=== PATIENT | male | born 1945 | race Caucasian/White ===

== ENCOUNTER 2021-01-13 07:14 | Outpatient (CLI) | payer MEDICARE ==
[2021-01-13] MEDS ORDERED: ADENOSINE 60 MG/20 ML VIAL ONE (08:39)
== END 2021-01-13 07:15 | disposition home or self-care (01) ==
LOC: NM 07:14
PROVIDERS: ATTEND Internal Medicine
DX: R07.9 Chest pain, unspecified (principal)
CPT/HCPCS: 78452; 93017; A9500; J0153

== ENCOUNTER 2021-09-17 09:46 | Observation (INO) | payer MEDICARE ==
[2021-09-17 10:10] LABS: #Eosinphils 0.1 thou/uL (0.0-0.7); #Lymphocytes 1.9 thou/uL (1.20-3.40); #Monocytes 0.7 thou/uL (0.11-0.59); #Neutrophils 8.7 thou/uL (1.40-6.50); %Basophils 0.4 % (0.0-1.0); %Eosinophils 0.8 % (0.0-10.0); %Lymphocytes 16.3 % (21.0-51.0); %Monocytes 6.1 % (0.0-10.0); %Neutrophils 76.4 % (42.0-75.0); Hemoglobin 14.4 g/dL (14.0-18.0); Mean Corpuscular HGB CONC 32.9 g/dL (32.0-36.0); Mean Corpuscular Hemoglobin 30.8 pg (27.0-31.0); Mean Corpuscular Volume 93.6 fL (78.0-98.0); Mean Platelet Volume 7.2 fL (7.4-10.4); Platelet Count 171 thou/uL (130-400); RBC Distribution Width 12.7 % (11.5-14.5); Red Blood Cell (RBC) Count 4.69 mill/uL (4.70-6.10); White Blood Cell (WBC) Count 11.4 thou/uL (4.8-10.8)
[2021-09-17] MEDS ORDERED: Lidocaine Viscous Sol 2% 15 ml UD Cup ONE (10:44)
[2021-09-17] MEDS ORDERED: Mag-Al 1200 mg/1200 mg/30 ML UDCUP ONE (10:44)
[2021-09-17] MEDS ORDERED: Aspirin Chewable 81 MG TAB ONE (10:44)
[2021-09-17] MEDS ORDERED: Pantoprazole 40 MG VIAL ONE (10:45)
[2021-09-17 11:03] LABS: ALT (SGPT) 38 U/L (8-55); AST (SGOT) 25 U/L (5-34); Albumin 4.3 g/dL (3.4-4.8); Alkaline Phosphatase 137 U/L (40-110); Anion Gap 15 mmol/L (10-20); BUN (Urea Nitrogen) 24 mg/dL (8.4-25.7); Bilirubin, Total 0.5 mg/dL (0.2-1.2); Calc. Creatinine Clearance 0 mL/min (70-130); Calcium 9.6 mg/dL (7.8-10.44); Carbon Dioxide 22 mmol/L (23-31); Chloride 107 mmol/L (98-107); Globulin 2.9 g/dL (2.4-3.5); Glucose 127 mg/dL (83-110); Lipase 55 U/L (8-78); Potassium 4.2 mmol/L (3.5-5.1); Protein, Total 7.2 g/dL (5.8-8.1); Sodium 140 mmol/L (136-145)
[2021-09-17] MEDS ORDERED: Nitroglycerin 0.4 MG TAB (25 Tab Bottle) SL PRN (12:31)
[2021-09-17 13:43] LABS: Troponin I 0.019 ng/mL (< 0.028)
[2021-09-17] MEDS ORDERED: Mag-Al 1200 mg/1200 mg/30 ML UDCUP PO PRN (13:43)
[2021-09-17] MEDS ORDERED: Calcium Carbonate 500 MG ChewTAB PO PRN (13:43)
[2021-09-17 14:05] VITALS: BMI 33.5
[2021-09-17] MEDS: Pyridostigmine Bromide IR 60 MG TAB PO SCH ×2 (16:06→20:27)
[2021-09-17 19:28] LABS: Troponin I 0.011 ng/mL (< 0.028)
[2021-09-17] MEDS: Mycophenolate 250 MG CAP PO SCH (20:27)
[2021-09-17] MEDS ORDERED: Gabapentin 300 MG CAP PO SCH (21:00)
[2021-09-17] MEDS ORDERED: Atorvastatin Calcium 40 MG TAB PO SCH (21:00)
[2021-09-18 05:24] LABS: Cardiac Risk 3.5 (Less than 4.5)
[2021-09-18] MEDS ORDERED: Levothyroxine Sodium 88 MCG TAB PO SCH (06:00)
[2021-09-18] MEDS ORDERED: Valsartan 80 MG TAB PO SCH (09:00)
[2021-09-18] MEDS ORDERED: Hydrochlorothiazide 25 MG TAB PO SCH (09:00)
[2021-09-18] MEDS ORDERED: Aspirin Chewable 81 MG TAB PO SCH (09:00)
[2021-09-18] MEDS: Mycophenolate 250 MG CAP PO SCH (09:11)
[2021-09-18] MEDS: Pyridostigmine Bromide IR 60 MG TAB PO SCH ×2 (09:12→16:15)
[2021-09-18 13:20] LABS: Troponin I Less than 0.010 ng/mL (< 0.028)
[2021-09-18 13:43] LABS: Anion Gap 13 mmol/L (10-20); BUN (Urea Nitrogen) 21 mg/dL (8.4-25.7); Calc. Creatinine Clearance 68 mL/min (70-130); Calcium 9.1 mg/dL (7.8-10.44); Carbon Dioxide 26 mmol/L (23-31); Chloride 106 mmol/L (98-107); Glucose 84 mg/dL (83-110); Potassium 3.6 mmol/L (3.5-5.1); Sodium 141 mmol/L (136-145)
[2021-09-18 15:46] VITALS: BP 123/70; TEMP 98.3
== END 2021-09-18 20:45 | disposition home or self-care (01) ==
LOC: ERS 09:46 → 2SW 12:24
PROVIDERS: ADMIT Internal Medicine; ATTEND Internal Medicine
DX: R07.2 Precordial pain (principal); I12.9 Hypertensive chronic kidney disease with stage 1 through stage 4 chronic kidney disease, or unspecified chronic kidney disease; N18.30 Chronic kidney disease, stage 3 unspecified; E78.5 Hyperlipidemia, unspecified; E03.9 Hypothyroidism, unspecified; G70.00 Myasthenia gravis without (acute) exacerbation; M17.11 Unilateral primary osteoarthritis, right knee; I45.2 Bifascicular block; I35.8 Other nonrheumatic aortic valve disorders; E66.9 Obesity, unspecified; Z68.33 Body mass index [BMI] 33.0-33.9, adult; Z85.46 Personal history of malignant neoplasm of prostate; Z79.52 Long term (current) use of systemic steroids; Z79.890 Hormone replacement therapy; Z79.899 Other long term (current) drug therapy; Z20.822 Contact with and (suspected) exposure to COVID-19
CPT/HCPCS: 71045; 80048; 80053; 80061; 83690; 84484 ×3; 85025; 93005; 93306; 94760; U0003; U0005; 36415; C9113; G0378; J7517

== ENCOUNTER 2022-12-08 14:47 | Outpatient (CLI) | payer MEDICARE | END 2022-12-08 14:48 | disposition home or self-care (01) | LOC: BICMAMMO 14:47 | PROVIDERS: ATTEND Internal Medicine | DX: N63.10 Unspecified lump in the right breast, unspecified quadrant (principal) | CPT/HCPCS: 77066; G0279 ==